=== PATIENT | male | born 1935 | race Caucasian/White ===

== ENCOUNTER 2016-11-21 23:00 | Inpatient (IN) | payer BC ==
[~2016-11-21] VITALS: Ht 177.8 cm; Wt 77.0 kg
[2016-11-21 23:38] LABS: EOSINOPHIL (%) 7.7 % (0-5); EOSINOPHIL COUNT 0.4 K/uL (0-0.3); HEMATOCRIT 36.3 % (38.0-50.0); IMMATURE GRANULOCYTE (%) 0.6 % (0.0-0.7); IMMATURE GRANULOCYTE COUNT 0.3 K/uL; LYMPHOCYTE COUNT 0.6 K/uL (1.0-2.8); MCHC 33.3 G/DL (30.0-36.0); MEAN PLAT.VOLUME 9.5 uM^3 (9.0-12.4); MONOCYTE (%) 0.2 % (3-12); NEUTROPHIL (%) 79.9 % (45-76); NEUTROPHIL COUNT 4.1 K/uL (1.8-6.4); PLATELET COUNT 213 K/uL (156-360); RBC DIS.WIDTH-CV 14.4 % (11.8-14.6); RBC DIS.WIDTH-SD 47.7 % (39-53); RED BLOOD COUNT 3.78 M/uL (4.00-5.50); WHITE BLOOD COUNT 5.2 K/uL (4.1-10.2)
[2016-11-21 23:47] LABS: CHLORIDE 105 mEq/L (99-109); POTASSIUM 5.4 mEq/L (3.7-5.4); SODIUM 140 mEq/L (136-147)
[2016-11-21 23:50] LABS: GLUCOSE 110 mg/dL (70-99)
[2016-11-21 23:51] LABS: ANION GAP 13 MEQ/L (2-14)
[2016-11-21 23:52] LABS: TOTAL BILIRUBIN 0.3 mg/dL (0.0-1.0)
[2016-11-21 23:53] LABS: ALKALINE PHOSPHATASE 43 IU/L (3-129); GFR ESTIMATE (CALCULATED) 21 mL/min/
[2016-11-21 23:54] LABS: UREA NITROGEN (BUN) 52 mg/dL (9-23)
[2016-11-21 23:57] LABS: LIPASE 29 U/L (1.0-51.0)
[2016-11-22 00:59] LABS: ADD MIUA? YES; BILIRUBIN NEGATIVE; BLOOD MODERATE; COLOR YELLOW ((YELLOW)); GLUCOSE (STRIP) NEGATIVE; KETONES NEGATIVE; LEUKOCYTES LARGE; NITRITE POSITIVE; PROTEIN (STRIP) 30; SPECIFIC GRAVITY 1.008 (1.000-1.030); UROBILINOGEN 0.2 MG/DL (0.2-1.0)
[2016-11-22] MEDS ORDERED: LOSARTAN POTAS100 MG PO (01:13)
[2016-11-22] MEDS ORDERED: FLONASE16 G1 BOTH NARES (01:13)
[2016-11-22] MEDS ORDERED: LOPRESSOR25 MG PO (01:14)
[2016-11-22] MEDS ORDERED: TESTOSTERONE5 GM TD (01:14)
[2016-11-22] MEDS ORDERED: PRAVASTATIN SOD40 MG PO (01:14)
[2016-11-22] MEDS ORDERED: ALPRAZOLAM0.5 MG PO (01:15)
[2016-11-22 01:25] LABS: EPITHELIAL CELLS 1+; WHITE BLOOD CELLS TNTC /HPF (0-5)
[2016-11-22 01:26] LABS: BACTERIA 2+; CASTS NONE SEEN /LPF; CRYSTALS NONE SEEN; MUCUS NONE SEEN; UCUL ADDED? YES
[2016-11-22 02:48] VITALS: BP 174/80
[2016-11-22 02:50] VITALS: BP 154/78
[2016-11-22 07:56] VITALS: BP 172/78
[2016-11-22 12:23] LABS: UR CREATININE CONCENTRATION 85.3 MG/DL
[2016-11-22 16:19] VITALS: BP 144/71
[2016-11-22 23:03] VITALS: BP 117/58
[2016-11-23 03:30] VITALS: BP 122/58
[2016-11-23 07:05] LABS: EOSINOPHIL (%) 1.7 % (0-5); EOSINOPHIL COUNT 0.3 K/uL (0-0.3); HEMATOCRIT 30.8 % (38.0-50.0); IMMATURE GRANULOCYTE (%) 0.8 % (0.0-0.7); IMMATURE GRANULOCYTE COUNT 0.2 K/uL; LYMPHOCYTE COUNT 1.1 K/uL (1.0-2.8); MCH 32.3 PG (29.0-34.0); MCHC 33.4 G/DL (30.0-36.0); MCV 96.6 FL (86-99); MONOCYTE COUNT 0.8 K/uL (0-0.8); NEUTROPHIL (%) 88.1 % (45-76); NEUTROPHIL COUNT 17.7 K/uL (1.8-6.4); RBC DIS.WIDTH-CV 14.5 % (11.8-14.6); RBC DIS.WIDTH-SD 50.8 % (39-53); RED BLOOD COUNT 3.19 M/uL (4.00-5.50)
[2016-11-23 07:06] LABS: WHITE BLOOD COUNT 20.1 K/uL (4.1-10.2)
[2016-11-23 07:18] LABS: ALKALINE PHOSPHATASE 33 IU/L (3-129); ANION GAP 11 MEQ/L (2-14); CHLORIDE 104 MEQ/L (99-109); GLUCOSE 92 mg/dL (70-99); POTASSIUM 4.9 MEQ/L (3.7-5.4); SAMPLE HEMOLYSIS CHECK 0; SAMPLE ICTERIC CHECK 0; SAMPLE LIPEMIA CHECK 0; SODIUM 134 MEQ/L (136-147); TOTAL BILIRUBIN 0.3 MG/DL (0.0-1.0); UREA NITROGEN (BUN) 64 mg/dL (9-23)
[2016-11-23 07:28] LABS: GFR ESTIMATE (CALCULATED) 16 mL/min/
[2016-11-23 08:00] VITALS: BP 144/69
[2016-11-23 08:35] LABS: MEAN PLAT.VOLUME 10.3 uM^3 (9.0-12.4); PLAT.SUFFICIENCY DECREASED; PLATELET COUNT 121 K/uL (156-360); USER ID STC
[2016-11-23 16:25] VITALS: BP 131/69
[2016-11-23 18:59] LABS: IRON < 10.0 MCG/DL (35-150)
[2016-11-23 22:04] VITALS: BP 156/67
[2016-11-24 07:14] LABS: ANION GAP 9 MEQ/L (2-14); CHLORIDE 107 MEQ/L (99-109); GFR ESTIMATE (CALCULATED) 17 mL/min/; GLUCOSE 107 mg/dL (70-99); POTASSIUM 4.8 MEQ/L (3.7-5.4); SAMPLE HEMOLYSIS CHECK 0; SAMPLE ICTERIC CHECK 0; SAMPLE LIPEMIA CHECK 0; SODIUM 137 MEQ/L (136-147); UREA NITROGEN (BUN) 64 mg/dL (9-23)
[2016-11-24 07:41] VITALS: BP 164/74
[2016-11-24 16:03] VITALS: BP 172/86
[2016-11-24 22:41] VITALS: BP 173/78
[2016-11-25 03:14] VITALS: BP 181/84
[2016-11-25 08:06] VITALS: BP 198/86
[2016-11-25 17:02] VITALS: BP 217/98
[2016-11-25 17:04] VITALS: BP 156/84
[2016-11-25 19:07] VITALS: BP 180/80
[2016-11-25 22:46] VITALS: BP 188/85
[2016-11-26 06:37] LABS: EOSINOPHIL (%) 6.5 % (0-5); EOSINOPHIL COUNT 0.4 K/uL (0-0.3); HEMATOCRIT 31.7 % (38.0-50.0); IMMATURE GRANULOCYTE (%) 0.2 % (0.0-0.7); LYMPHOCYTE COUNT 0.8 K/uL (1.0-2.8); MCH 31.5 PG (29.0-34.0); MCHC 33.8 G/DL (30.0-36.0); MCV 93.2 FL (86-99); MEAN PLAT.VOLUME 10.5 uM^3 (9.0-12.4); MONOCYTE (%) 10.6 % (3-12); MONOCYTE COUNT 0.6 K/uL (0-0.8); NEUTROPHIL (%) 67.8 % (45-76); NEUTROPHIL COUNT 3.8 K/uL (1.8-6.4); PLATELET COUNT 128 K/uL (156-360); RBC DIS.WIDTH-SD 46.8 % (39-53); WHITE BLOOD COUNT 5.6 K/uL (4.1-10.2)
[2016-11-26 06:50] LABS: ALKALINE PHOSPHATASE 42 IU/L (3-129); ANION GAP 10 MEQ/L (2-14); CHLORIDE 108 MEQ/L (99-109); GLUCOSE 108 mg/dL (70-99); POTASSIUM 4.5 MEQ/L (3.7-5.4); SAMPLE HEMOLYSIS CHECK 0; SAMPLE ICTERIC CHECK 0; SAMPLE LIPEMIA CHECK 0; SODIUM 139 MEQ/L (136-147); UREA NITROGEN (BUN) 50 mg/dL (9-23)
[2016-11-26 06:51] LABS: GFR ESTIMATE (CALCULATED) 21 mL/min/; TOTAL BILIRUBIN 0.4 MG/DL (0.0-1.0)
[2016-11-26 09:17] VITALS: BP 170/70
[2016-11-26 09:47] VITALS: BP 205/91
[2016-11-26 10:30] VITALS: BP 171/80
[2016-11-26 11:40] VITALS: BP 179/83
[2016-11-26 13:42] VITALS: BP 156/73
[2016-11-26] MEDS ORDERED: LEVAQUIN500 MG PO (15:51)
[2016-11-26] MEDS ORDERED: CLONIDINE HCL0.2 MG PO (15:52)
[2016-11-26] MEDS ORDERED: NORVASC5 MG PO (15:53)
[2016-11-26] MEDS ORDERED: ALPRAZOLAM0.5 MG PO (15:54)
[2016-11-26] MEDS ORDERED: CARDURA2 M1 PO (16:19)
== END 2016-11-26 17:01 | disposition home health service (06) | DRG 690 ==
LOC: EME 23:00 → EDOF 11-22 01:50 → 5EAST 11-22 01:50
PROVIDERS: Emergency Medicine; Family Medicine; Internal Medicine
DX: N13.6 Pyonephrosis (principal); B96.20 Unspecified Escherichia coli [E. coli] as the cause of diseases classified elsewhere; N17.0 Acute kidney failure with tubular necrosis; E87.1 Hypo-osmolality and hyponatremia; E87.2 Acidosis; E86.0 Dehydration; E11.22 Type 2 diabetes mellitus with diabetic chronic kidney disease; I12.9 Hypertensive chronic kidney disease with stage 1 through stage 4 chronic kidney disease, or unspecified chronic kidney disease; N18.3 Chronic kidney disease, stage 3 (moderate); J44.9 Chronic obstructive pulmonary disease, unspecified; I25.10 Atherosclerotic heart disease of native coronary artery without angina pectoris; G89.29 Other chronic pain; E67.3 Hypervitaminosis D; T45.2X5A Adverse effect of vitamins, initial encounter; D64.9 Anemia, unspecified; Z85.46 Personal history of malignant neoplasm of prostate; Z86.718 Personal history of other venous thrombosis and embolism; Z95.5 Presence of coronary angioplasty implant and graft; Z87.891 Personal history of nicotine dependence
CPT/HCPCS: 71250; 74176; 76770; 80053; 80069; 81003; 82306; 82436; 82550; 82570; 83540; 83690; 84100; 84300; 84466; 85025; 87077; 87086; 87186; 94799; 99281; 99285; G0103; J0696; J0744; J1170; J1956; J2270; J2405; J7030; J7050; J7120

== ENCOUNTER → 2016-12-10 | Outpatient (CLI) | payer MEDICARE, BC ==
[~2016-12-10] MED LIST: ALPRAZOLAM0.5 MG PO; CARDURA2 M1 PO; CLONIDINE HCL0.2 MG PO; FLONASE16 G1 BOTH NARES; LEVAQUIN500 MG PO; LOPRESSOR25 MG PO; LOSARTAN POTAS100 MG PO; NORVASC5 MG PO; PRAVASTATIN SOD40 MG PO; TESTOSTERONE5 GM TD
== END | disposition home or self-care (01) ==
LOC: CDC 09:40
DX: I45.10 Unspecified right bundle-branch block (principal)
CPT/HCPCS: 93000

== ENCOUNTER 2016-12-16 09:51 | Day surgery (SDC) | payer OTHER, BC ==
[~2016-12-16] VITALS: Ht 177.8 cm; Wt 77.1 kg
[~2016-12-16 09:51] MED LIST changes: +PRAVACHOL40 MG PO; +PREVACID30 MG PO
[2016-12-16 10:25] VITALS: BP 180/81
== END 2016-12-16 11:00 | disposition home or self-care (01) ==
LOC: SDC
PROC: 08J1XZZ Inspection of Left Eye, External Approach (ICD-10-PCS; principal; 2016-12-16)
DX: H35.372 Puckering of macula, left eye (principal); Z53.09 Procedure and treatment not carried out because of other contraindication
CPT/HCPCS: J0690; J0713; J3300